=== PATIENT | female | born 1960 | race Caucasian/White ===

== ENCOUNTER 2017-07-14 13:45 | Inpatient (IN) | payer MEDICAID ==
[2017-07-14 14:31] LABS: % BASOPHILS 1.4 % (0.0-2.0); % EOSINOPHILS 0.6 % (0.0-5.0); % LYMPHOCYTES 11.8 % (20.0-50.0); % MONOCYTES 6.8 % (2.0-10.0); % NEUTROPHILS 79.4 % (40.0-80.0); BASOPHILE ABSOLUTE 0.2 Th/cumm (0-0.2); EOSINOPHILE ABSOLUTE 0.1 Th/cmm (0.1-0.4); HEMATOCRIT 38.1 % (41.0-60); LYMPHOCYTE ABSOLUTE 1.7 Th/cmm (1.5-3.0); MEAN CORPUSCULAR HEMOGLOBIN 21.4 pg (27.0-31.0); MEAN CORPUSCULAR HGB CONC 31.4 pg (28.0-36.0); MEAN PLATELET VOLUME 8.7 fl; NEUTROPHILE ABSOLUTE 11.1 Th/cmm (1.8-8.0); PLATELET COUNT 553 Th/cmm (150-400); RED BLOOD COUNT 5.61 Mil/cmm (3.80-5.10); RED CELL DISTRIBUTION WIDTH 26.6 % (11.5-20.0)
[2017-07-14] MEDS ORDERED: Sodium Chloride 0.9% 500 ML IV ONE (14:38)
[2017-07-14 14:40] LABS: ALB/GLOB RATIO 0.8 (1.0-1.8); ALBUMIN 3.1 gm/dL (3.7-5.3); ALKALINE PHOSPHATASE 106 U/L (34-104); ANION GAP 12.2 (7.0-16.0); BILIRUBIN,TOTAL 0.3 mg/dL (0.3-1.0); BUN - UREA NITROGEN 13 mg/dL (7-25); CALCIUM SERUM 10.6 mg/dL (8.6-10.3); CARBON DIOXIDE 24.5 mEq/L (21.0-31.0); CHLORIDE 96 mEq/L (98-107); CREATININE - SERUM 0.4 mg/dL (0.6-1.2); CREATININE KINASE 19 U/L (30-223); GFR AFRICAN-AMERICAN > 60.0 ml/min (>90); GFR NON AFRICAN-AMERICAN > 60.0 ml/min; GLUCOSE 139 mg/dL (70-105); MAGNESIUM 1.7 mg/dL (1.9-2.7); POTASSIUM SERUM 4.7 mEq/L (3.5-5.1); SGOT 18 U/L (13-39); SGPT/ALT 18 U/L (7-52); SODIUM SERUM 128 mEq/L (136-145); TOTAL PROTEIN,SERUM 6.9 gm/dL (6.0-8.3)
--- NOTE | 2017-07-14 14:51 | Diagnostic Imaging Report ---
Portable chest x-ray HISTORY: Shortness of breath, pneumonia, question neoplasm Prior exams are not available for comparison. The heart is enlarged. Heterogeneous density seen in the right lower hemithorax that may be associated with severe infiltrate along with a right pleural effusion. Partial obscuration the right hilar margins. Exact position of the right hemidiaphragm is unclear. IMPRESSION: 1. Heterogeneous density in the right lower hemithorax suggesting extensive infiltrate/consolidation and the presence of a right pleural effusion. Exact location of the right hemidiaphragm is uncertain. A CT scan would provide additional assessment if needed. Correlation with patient history and prior studies would be most beneficial. 2. Cardiomegaly
[2017-07-14 14:58] LABS: WHITE BLOOD COUNT 14.1 Th/cmm (4.8-10.8)
--- NOTE | 2017-07-14 15:01 | Transfer Summary ---
DATE OF TRANSFER: 07/14/2017 ADDENDUM The patient had an x-ray done. X-ray showed normal left wrist, there was no evidence of any fracture. The patient was discharged for home to take some analgesics like Tylenol p.r.n. for pain or Advil 2 tablets couple of times for pain not more than 2 or 3 days and hopefully this should get better, soaking in warm water and otherwise. Incomplete dictation JOB# [id number]
[2017-07-14] MEDS ORDERED: Sodium Chloride 0.9% 1,000 ML IV ONE (15:04)
[2017-07-14 15:06] LABS: MEAN CELL VOLUME 67.9 fl (81-100)
[2017-07-14] MEDS ORDERED: Albuterol Nebulizer 2.5mg/3mL HHN SCH (15:30)
[2017-07-14] MEDS ORDERED: Maalox 30 mL Cup PO PRN (15:31)
[2017-07-14] MEDS ORDERED: Sodium Chloride 0.45% 1,000 ML IV SCH (15:45)
[2017-07-14] MEDS ORDERED: Non-Formulary Item 1 EA (Apixaban [Eliquis] 5 MG) PO SCH (17:00)
[2017-07-14] MEDS: INSULIN ASPART, RECOMBINANT 100 UNITS/ML SUBQ SCH ×2 (17:54→21:55)
[2017-07-14 18:17] LABS: A1C % 10.1 % (4.0-6.0)
[2017-07-14 18:46] LABS: URINE MICROSCOPIC INDICATED? YES; URINE SOURCE CLEAN C
[2017-07-14 18:49] LABS: URINE BILIRUBIN NEGATIVE (NEGATIVE); URINE BLOOD NEGATIVE (NEGATIVE); URINE GLUCOSE (UA) NEGATIVE (NEGATIVE); URINE KETONE NEGATIVE (NEGATIVE); URINE LEUKOCYTE ESTERASE NEGATIVE (NEGATIVE); URINE NITRATE NEGATIVE (NEGATIVE); URINE PROTEIN TRACE mg/dL (NEGATIVE); URINE UROBILINOGEN 0.2 E.U./dL (0.2 - 1.0)
[2017-07-14] MEDS: Albuterol Nebulizer 2.5mg/3mL HHN SCH (18:51)
[2017-07-14 18:55] LABS: URINE BACTERIA NONE SEEN /hpf (NONE SEEN); URINE CLARITY CLEAR (CLEAR); URINE COLOR YELLOW; URINE EPITHELIAL CELLS NONE SEEN /lpf (FEW); URINE RBC NONE SEEN /hpf (0-5); URINE WBC NONE SEEN /hpf (0-5)
--- NOTE | 2017-07-14 19:36 | Transfer Summary ---
DATE OF TRANSFER: 07/14/2017 FOLLOWUP REPORT This was verbally communicated to Dr. Cohen who will be admitting the patient. IMPRESSION HISTORY: Shortness of breath, pneumonia, questionable neoplasm. FINAL DIAGNOSES by Dr. Jesus Blackwell is heterogenous density in the right lower hemithorax suggesting extensive infiltrate/consolidation in the presence of right pleural effusion, exact location of the right hemidiaphragm is uncertain. A CT scan would provide additional assessment if needed. Correlation with the patient's history and prior studies could be most beneficial cardiomegaly. This information was passed on to Dr. Cohen. White count was 14.1, hemoglobin is 12, hematocrit is 38.1, platelet count is 553,000, lymphocytes is 11.8, neutrophils are 79.4. The patient will be admitted and Dr. Cohen will take care of the final diagnosis possible pneumonia in the right lung and the exact location of the right diaphragm is uncertain. A heterogenous density in the right hemithorax plus diabetes plus hypertension, hyper platelet and white count is 14.1, temperature was 99.4. 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 The patient is on multiple medications and the other medications will be given by Dr. Cohen as needed. JOB# [id number]
[2017-07-14 20:03] VITALS: BP 156/88
--- NOTE | 2017-07-14 20:44 | History & Physical ---
ADMIT DATE: 07/14/2017 CHIEF COMPLAINT: Congestion, abnormal chest x-ray. HISTORY OF PRESENT ILLNESS: This is a 57-year-old female with history of hypertension, hypercholesterolemia, obesity, diabetes, seizure, DVT, admitted from nursing facility secondary to congestion with abnormal chest x-ray. The patient noted to have white count during evaluation in the ER. PAST MEDICAL HISTORY: As mentioned in history of present illness. PAST SURGICAL HISTORY: Denies surgeries. ALLERGIES: FAMOTIDINE. MEDICATIONS: Albuterol, Atrovent, Ambien, Risperdal, Zofran, metformin, Lantus, glipizide, Maxzide, Cogentin, atenolol, Eliquis, Tylenol. FAMILY HISTORY: Noncontributory. SOCIAL HISTORY: Avid smoker, nondrinker, no intravenous drug use. REVIEW OF SYSTEMS: GENERAL: Complains not feeling well. HEENT: No blurred vision. NECK: No neck pain. LUNGS: With a questionable history of COPD. The patient is a chronic smoker. HEART: Hypertensive. Denies coronary artery disease. ABDOMEN: No nausea, vomiting or pain. GENITOURINARY: The patient denies increased frequency or dysuria. NEUROLOGIC: No headache or seizure. PSYCHIATRIC: Stable. PHYSICAL EXAMINATION: VITAL SIGNS: Blood pressure 130/74, respirations 16, pulse 96, temperature 97.7. GENERAL: Elderly female, morbidly obese. NECK: Supple. No mass. LUNGS: Equal breath sounds with few rhonchi. HEART: Regular rate and rhythm. Systolic ejection murmur. ABDOMEN: Soft, globular. EXTREMITIES: Positive excoriations. NEUROLOGIC: Limited. LABORATORY DATA: WBC 14, hemoglobin 12, platelets 553. Sodium 120, potassium 4.7, BUN 34, creatinine 0.4, blood sugar 139, magnesium 1.7, albumin 3.1. ASSESSMENT AND PLAN: Congestion, possible pneumonia, leukocytosis, possible sepsis, hyponatremia, hypertension, hypercholesterolemia, obesity, diabetes, history of deep venous thrombosis. Continue the patient on oxygen and bronchodilator treatment. Continue on IV antibiotic. We will review the patient's chest x-ray. We will send for sputum Gram stain and culture and sensitivity. Continue with current care. We will follow consult and recommendations. JOB# [id number]
--- NOTE | 2017-07-14 21:39 | ER Physician Documentation ---
DATE OF SERVICE: 07/14/2017 EMERGENCY ROOM EVALUATION AND TREATMENT She is full code patient. Allergy to FAMOTIDINE, H2 ROBB. This is a 57-year-old female patient who was referred here by Dr. Cohen for elevated platelet that is thrombocytosis. The patient said that she had twice thrombocytosis, but it is not that high and she does not have any symptoms from this. I believe the patient was seen by affiliate marketing manager/oncologist to what apparent medication was given. Usually hydroxyurea is given to decrease the platelet numbers and count if no apparent etiology is detected. The patient's main complaint is that she came with elevated platelet and she said that she has some lump in the left breast and she sees a female breast M.D. who is specializing in the breast and she says it is not found to be cancer. HISTORY OF PRESENT ILLNESS: The patient 6 months ago had pneumonia. She has diabetes mellitus. She used to smoke, now she smokes a little bit. She used to drink a little bit in the past. She does not like it, so she does not drink. She does not abuse any drugs. Otherwise, history of present illness is essentially benign and negative except for her diagnosis of diabetes mellitus, insulin-dependent, along with taking metformin. She takes metformin 500 mg twice a day and Lantus 20 units once a day. The patient has hypertension, high cholesterol. REVIEW OF SYSTEMS: EYES: No history of double vision, blurring of the vision, nystagmus. CONSTITUTIONAL: No history of fevers, chills or rigors. Bones and joints essentially, she said she had a fracture above the left knee, but patient was walking after the fracture that means she did not have a fracture. The patient did not have a cast. The patient did not have surgery. The patient does not have any special boots or things of that nature, that disproves her diagnosis of having had a broken bone and she said they were broken into multiple pieces so this also is proven wrong because with that kind of condition the patient cannot just walk. FAMILY HISTORY: Benign and negative. MEDICAL HISTORY: Otherwise, the patient had a history of appendicectomy, at the age of 23 and one other minor surgery, that I am forgetting at the present moment, but will find out and write it down. Medical history is diabetes, hypertension, hypercholesterolemia and patient had a high platelet count, but today's platelet count 2 days ago was 658,000, so it is not that high, usually in sickle cell, the platelet count can go as high as 1000 or more than 1000 and all you need to do is give them hydroxyurea and they get better. I believe she might also need hydroxyurea and she might be dehydrated giving rise to clumping, so she might need also some IV fluids on a regular basis to prevent any clumping, any thrombocytosis developing, any infection that she has should be corrected to prevent a platelet count from going up, so there a few other causes that could be given to the patient to treat it. REVIEW OF SYSTEMS: Continued overall, peripheral vascular disease is negative, all the pulses are normal. Bones and joints are essentially normal. The patient is moving all the extremities. She can walk on her own without any cane or any chair, etc. Without any support. GI dasilva, patient has no diarrhea, no constipation, no vomiting. LUNGS: No history of pneumonia, TB, pulmonary embolism, COPD, emphysema, bronchitis. Cardiac dasilva, patient has no history of any chest pain, myocardial infarction, rheumatic fever, valvular heart disease, pericardial disease. EKG was just done by the master sonar technician showing suggestion of left atrial enlargement, one PVC was recorded. Otherwise, the patient does not have any evidence of ischemia or any other significant medical condition that could be seen. On genitourinary dasilva, patient has no burning, frequency, dysuria. There is no history of any kidney stones. A 12-point review of system is essentially benign and negative. She does not have any weakness, etc. She has some psychiatric problems for which she takes Haldol 2 mg b.i.d. She takes Ativan 2 mg p.o. b.i.d. and she takes Elavil 75 mg p.o. twice a day. PHYSICAL EXAMINATION: GENERAL: The patient appears to be awake, alert, oriented, not in any acute cardiorespiratory distress. Conjunctivae pink. Sclerae white. HEENT: Normal. Jugular venous pressure is normal. VITAL SIGNS: The triage nurse took the vital signs showing temperature to be 98.7, pulse is 105, respirations 21, blood pressure 89/63, somewhat lower, that also tells you that the lowering of blood pressures range, the patient may be dehydrated and if the diabetes is not corrected and the blood sugar is high he may void more urine and platelet count may go up because there is clustering of the platelet occurring with dehydration and more urine output. The patient's height is 4 feet 9 inches and weighing 172 pounds. Flu vaccination, tetanus and pneumococcus vaccination, all are standard taken without any problem. MEDICAL HISTORY: Otherwise, the patient has a lump in the left breast. She does not allow me to see it saying that she has a doctor for that, so left it alone for her physician to take care of it. There is nothing acute she says in that breast. The patient's surgery is otherwise no definite surgery other than appendicectomy, . SOCIAL HISTORY: She has one child. She is not . FAMILY HISTORY: Benign and negative. PHYSICAL EXAMINATION: GENERAL: The patient appears to be awake, alert, oriented, not in any acute cardiorespiratory distress. Conjunctivae are pink, sclerae are white. HEENT: Normal. Jugular venous pressure, is essentially within normal limits. Carotids are normal. Normal uplift, no bruit heard over the carotid artery. No cyanosis, no petechia. No ecchymosis. Peripheral pulses are normal. Trace edema if any is present in the lower extremities. Central nervous system is grossly within normal limits. The patient recognizes that she is here. She knows where she is staying. She has been at one of the local [facility] where she has been taken care by Dr. Cohen. The patient's other medications as per in the computer by the triage nurse team. One thing to be noted is that the patient is taking Eliquis 5 mg p.o. b.i.d. for deep vein thrombophlebitis and whether this can cause any hyper platelet count is not known, but we can always check it out to see if there is anything The patient is also taking Cogentin 1 mg at bedtime. The patient is taking 20 units of insulin at nighttime, to be hold, to be not given if the blood sugar is less than 100 mg in the morning. The patient is taking 850 mg metformin p.o. 3 times a day with meals. Glipizide 5 mg p.o. once a day and hemoglobin A1c has been ordered to be done every 3 months. A1c level has been ordered, I am not sure what is the count if I can find it I will let you know. The vital signs taken by the nurse at the retirement is temperature of 98, pulse of 80, respirations 20, blood pressure 142/80, oxygen saturation 97%. Pain level is no pain. The patient has zero pain over 10. The patient's chest is clear. Fairly good air entry in both lungs, on the right lung base there is slightly decreased air entry, on the left lung air entry is good. Emphysematous chest wall AP diameter of the chest is increased. No rales or rhonchi is noted. Chest x-ray showed a right hemidiaphragm is elevated and there seems to be some haziness and there may be some pneumonitis or infiltrate at the right lower lobe area. The platelet count was found to be 658,000. Normal count is 150-400; 658 is not something very high but one should be significantly worried, but if needed should be treated. Urine culture test was done and it was pending. Urine was found to be negative. Calcium oxalate crystals were present. Urine examination otherwise was cloudy, but not having any evidence of infection. Hemoglobin A1c was very high at 9.4, which is high that means the patient is telling me that her sugar value is always below 127, but here I the sugar value is 223 and hemoglobin A1c is 9.4. White count is 12.73, so chances of patient having pneumonia or infection, etc. is pretty much high on the list. Hemoglobin A1c level is again 10.1, so although hemoglobin A1c level is pretty high and if the patient is staying in the retirement, maybe Eliquis could be changed to Lovenox; perhaps Eliquis might be a cause of elevated platelet count. Cholesterol LDL calculated was 120. The patient may need some medication to lower the cholesterol LDL level count. BUN is 14, creatinine was 0.37. This was done on 07/03/2017, so it is not bad looking BUN and creatinine ratio, not much of dehydration is seen. Potassium is 5.1 and electrolytes are within normal limits. Albumin is low at 2.9, alkaline phosphatase 158. The patient's examination of the chest as I mentioned few crackles at both lung bases and decreased air entry at the right base. HEART: Reveals normal heart sounds. Soft fourth heart sounds. Third heart sound is absent. Second heart sound is physiologically split. ABDOMEN: Soft, obese, otherwise benign, negative and surgical scar of is noted. Here I see that the patient was advised to be seen by a affiliate marketing manager/oncologist, what he did so far, it is hard to understand or read. The patient had pulmonary consultation. Hematology/Oncology consultation was requested, but what was the outcome, what treatment was given, at least I cannot locate it; perhaps Dr. Cohen might be aware of what is going on with the patient. We will rule out if there is any evidence of infection playing a role or whether any Eliquis is doing this, may be one can cut down the Eliquis from 10 mg to less than 10, maybe 5 or cut other doses to change it to Lovenox 30 or 40 mg once a day. ABDOMEN: Soft, benign, negative. Liver, spleen not enlarged. No free fluid in the abdominal cavity. CENTRAL NERVOUS SYSTEM: Within normal limits, moving all the extremities. No evidence of any tumor, etc. CLINICAL IMPRESSION: The patient came here for elevated platelets, etiology of the elevated platelets could be some medication, most likely it could be dehydration, it could be secondary to some medication. It could be some medication given to her and that might cause her lactic acid level was found to be 1.83, upper limit of normal should be 1.99, but still this is high. Her sodium level is also 1.128, that means she may be dry with electrolytes and she might need some fluids to be given. Her potassium of 4.7, chloride 96, CO2 of 24.5, glucose to be 139, BUN 13, creatinine 0.4, total albumin is 3.1, magnesium is 1.7, so she might need some IV magnesium chloride also. So we can give her some fluids. I do not have any CBC available or platelet count available at the present moment to give it to you but once available I will let you know. Other diagnosis that the patient has is the patient may be having some tremors, drooling or rigidity. The patient has hypertension. The patient has diabetes mellitus. The patient has a psychiatric problem. The patient had a history of DVT for which she takes Eliquis. She is on amitriptyline 50 mg tablet p.o. b.i.d. for depression and verbalizing sadness. She has also hyperlipidemia, LDL level is high and I believe for LDL level high gemfibrozil is not the drug to be given. I believe the drug to be given would be atorvastatin and/or Crestor to be given; not gemfibrozil. Gemfibrozil to be given if the patient's triglycerides levels are high. Risperidone 2 mg at nighttime for schizophrenia. Breathing treatment with albuterol has been given. Lasix has been given, I believe the Lasix should not be given at the present moment considering her diabetes mellitus, which is not controlled, once it is controlled, then maybe one can add on to the Lasix list. The platelet count done a few days ago was 658,000 to be kept in mind. Thank you again. There is no definite evidence of septic shock in this patient and any other treatment orders that will be necessary, I will order it. Thank you again, Dr. Cohen, for your kindness in this referral to sending her to the Emergency Room for us to check it out. JOB# [id number]
[2017-07-14] MEDS: Insulin Detemir 100 units/mL 10mL Vial SUBQ SCH (21:54)
[2017-07-14] MEDS: Benztropine 1 MG TAB PO SCH (21:54)
--- NOTE | 2017-07-15 01:17 | Consultation ---
DATE OF CONSULTATION: 07/14/2017 PHYSICIAN REQUESTING CONSULTATION: Dr. Cohen. REASON FOR CONSULTATION: History of psychosis. HISTORY OF PRESENT ILLNESS: This patient is a 57-year-old woman, resident of a [facility]. Information obtained by directly interviewing the patient as well as reviewing the admission papers and they are reliable. JUSTIFICATION OF HOSPITALIZATION: The patient is admitted over here for possible sepsis. The patient has shortness of breath and possible pneumonia. The patient is admitted over here for possible pneumonia and a psychiatric consultation is called to address the issue of the psychosis. The patient is interviewed. Staff was spoken to. The patient is reporting that she was at [facility] and has been diagnosed with psychosis and was on haloperidol 2 mg twice a day. The patient is also receiving the Ativan 0.5 mg on a p.r.n. basis and Elavil 50 mg at bedtime and the patient has been stating that she has been taking this medication for a long time and is also seeing a psychiatrist on an outpatient basis. PAST PSYCHIATRIC HISTORY: The patient is reported to have been hospitalized at [facility]. SOCIAL HISTORY: The patient is stating that she is a resident of [facility]. SUBSTANCE ABUSE HISTORY: None. PHYSICAL OR SEXUAL ABUSE HISTORY: None. LEGAL PROBLEMS: None at this time. MENTAL STATUS EXAMINATION: The patient is a 57-year-old woman looking her stated age. Moderately obese, superficially cooperative. Eye contact is poor. Mood is irritable. Affect is constricted. Insight and judgment at this time are noted to be impaired. Impulse control seems to be poor. Coping skills are also noted to be poor. The patient has been having paranoid delusions, but denies any commanding hallucinations. The patient has been having difficult time to cope with the stress. The patient, however, is not noted to be suicidal or homicidal. The patient has been cooperative at this time. The patient is willing to comply with the treatment. DIAGNOSES AT THE TIME OF ADMISSION: AXIS I: Schizophrenia, chronic paranoid type. AXIS II: None. IMMEDIATE TREATMENT PLAN: The patient is going to be restarted on her Haldol and follow up with the supportive therapy. JOB# [id number]
[2017-07-15 06:07] LABS: % BASOPHILS 4.5 % (0.0-2.0); % EOSINOPHILS 0.6 % (0.0-5.0); % LYMPHOCYTES 14.6 % (20.0-50.0); % MONOCYTES 7.9 % (2.0-10.0); % NEUTROPHILS 72.4 % (40.0-80.0); BASOPHILE ABSOLUTE 0.7 Th/cumm (0-0.2); EOSINOPHILE ABSOLUTE 0.1 Th/cmm (0.1-0.4); HEMATOCRIT 37.5 % (41.0-60); HEMOGLOBIN 11.7 gm/dL (12-16); LYMPHOCYTE ABSOLUTE 2.2 Th/cmm (1.5-3.0); MEAN CORPUSCULAR HEMOGLOBIN 21.1 pg (27.0-31.0); MEAN CORPUSCULAR HGB CONC 31.3 pg (28.0-36.0); MEAN PLATELET VOLUME 8.6 fl; MONOCYTE ABSOLUTE 1.2 Th/cmm (0.3-1.0); NEUTROPHILE ABSOLUTE 10.6 Th/cmm (1.8-8.0); PLATELET COUNT 593 Th/cmm (150-400); RED BLOOD COUNT 5.56 Mil/cmm (3.80-5.10)
[2017-07-15 06:10] LABS: MEAN CELL VOLUME 67.5 fl (81-100); WHITE BLOOD COUNT 14.8 Th/cmm (4.8-10.8)
[2017-07-15 06:23] LABS: ANION GAP 9.1 (7.0-16.0); BUN - UREA NITROGEN 9 mg/dL (7-25); CALCIUM SERUM 10.3 mg/dL (8.6-10.3); CARBON DIOXIDE 25.3 mEq/L (21.0-31.0); CHLORIDE 98 mEq/L (98-107); CREATININE - SERUM 0.3 mg/dL (0.6-1.2); GFR AFRICAN-AMERICAN > 60.0 ml/min (>90); GFR NON AFRICAN-AMERICAN > 60.0 ml/min; GLUCOSE 189 mg/dL (70-105); POTASSIUM SERUM 4.4 mEq/L (3.5-5.1); SODIUM SERUM 128 mEq/L (136-145)
[2017-07-15] MEDS: INSULIN ASPART, RECOMBINANT 100 UNITS/ML SUBQ SCH ×4 (06:32→21:09)
[2017-07-15] MEDS: Albuterol Nebulizer 2.5mg/3mL HHN SCH ×4 (08:18→20:30)
[2017-07-15] MEDS ORDERED: Dabigatran Mesylate 75 mg Cap PO SCH (09:00)
--- NOTE | 2017-07-15 11:51 | Internal Medicine Prog Note ---
Internal Medicine Subjective - Subjective Patient seen and examined:: with staff, chart reviewed Patient is:: awake, verbal, interactive, in bed, agitated Patient Complaints of:: congestion Per staff patient has:: no adverse event, no episodes of fall, noncompliant, tolerating meds Internal Medicine Objective - Results Result Diagrams: 07/15/17 05:45 07/15/17 05:45 Recent Labs: Laboratory Last Values WBC 14.8 Th/cmm (4.8-10.8) H 07/15/17 05:45 RBC 5.56 Mil/cmm (3.80-5.10) H 07/15/17 05:45 Hgb 11.7 gm/dL (12-16) L 07/15/17 05:45 Hct 37.5 % (41.0-60) L 07/15/17 05:45 MCV 67.5 fl (81-100) L 07/15/17 05:45 MCH 21.1 pg (27.0-31.0) L 07/15/17 05:45 MCHC Differential 31.3 pg (28.0-36.0) 07/15/17 05:45 RDW 26.0 % (11.5-20.0) H 07/15/17 05:45 Plt Count 593 Th/cmm (150-400) H 07/15/17 05:45 MPV 8.6 fl 07/15/17 05:45 Neutrophils % 72.4 % (40.0-80.0) 07/15/17 05:45 Lymphocytes % 14.6 % (20.0-50.0) L 07/15/17 05:45 Monocytes % 7.9 % (2.0-10.0) 07/15/17 05:45 Eosinophils % 0.6 % (0.0-5.0) 07/15/17 05:45 Basophils % 4.5 % (0.0-2.0) H 07/15/17 05:45 Sodium 128 mEq/L (136-145) L 07/15/17 05:45 Potassium 4.4 mEq/L (3.5-5.1) 07/15/17 05:45 Chloride 98 mEq/L (98-107) 07/15/17 05:45 Carbon Dioxide 25.3 mEq/L (21.0-31.0) 07/15/17 05:45 Anion Gap 9.1 (7.0-16.0) 07/15/17 05:45 BUN 9 mg/dL (7-25) 07/15/17 05:45 Creatinine 0.3 mg/dL (0.6-1.2) L 07/15/17 05:45 Est GFR ( Amer) > 60.0 ml/min (>90) 07/15/17 05:45 Est GFR (Non-Af Amer) > 60.0 ml/min 07/15/17 05:45 BUN/Creatinine Ratio 30.0 07/15/17 05:45 Glucose 189 mg/dL (70-105) H 07/15/17 05:45 POC Glucose 141 MG/DL (70 - 105) H 07/15/17 11:25 Hemoglobin A1c % 10.1 % (4.0-6.0) H 07/14/17 14:17 Whole Bld Lactic Acid 1.83 mmol/L (0.60-1.99) 07/14/17 14:17 Calcium 10.3 mg/dL (8.6-10.3) 07/15/17 05:45 Magnesium 1.7 mg/dL (1.9-2.7) L 07/14/17 14:17 Total Bilirubin 0.3 mg/dL (0.3-1.0) 07/14/17 14:17 AST 18 U/L (13-39) 07/14/17 14:17 ALT 18 U/L (7-52) 07/14/17 14:17 Alkaline Phosphatase 106 U/L (34-104) H 07/14/17 14:17 Ammonia 42 umol/L (16-53) 07/15/17 05:45 Creatine Kinase 19 U/L (30-223) L 07/14/17 14:17 B-Natriuretic Peptide 556.0 pg/mL (5.0-100.0) H 07/15/17 05:45 Total Protein 6.9 gm/dL (6.0-8.3) 07/14/17 14:17 Albumin 3.1 gm/dL (3.7-5.3) L 07/14/17 14:17 Globulin 3.8 gm/dL 07/14/17 14:17 Albumin/Globulin Ratio 0.8 (1.0-1.8) L 07/14/17 14:17 Urine Source CLEAN C 07/14/17 17:35 Urine Color YELLOW 07/14/17 17:35 Urine Clarity CLEAR (CLEAR) 07/14/17 17:35 Urine pH 6.0 (4.6 - 8.0) 07/14/17 17:35 Ur Specific [place] 1.015 (1.005-1.030) 07/14/17 17:35 Urine Protein TRACE mg/dL (NEGATIVE) 07/14/17 17:35 Urine Glucose (UA) NEGATIVE mg/dL (NEGATIVE) 07/14/17 17:35 Urine Ketones NEGATIVE mg/dL (NEGATIVE) 07/14/17 17:35 Urine Blood NEGATIVE (NEGATIVE) 07/14/17 17:35 Urine Nitrate NEGATIVE (NEGATIVE) 07/14/17 17:35 Urine Bilirubin NEGATIVE (NEGATIVE) 07/14/17 17:35 Urine Urobilinogen 0.2 E.U./dL (0.2 - 1.0) 07/14/17 17:35 Ur Leukocyte Esterase NEGATIVE (NEGATIVE) 07/14/17 17:35 Urine RBC NONE SEEN /hpf (0-5) 07/14/17 17:35 Urine WBC NONE SEEN /hpf (0-5) 07/14/17 17:35 Ur Epithelial Cells NONE SEEN /lpf (FEW) 07/14/17 17:35 Urine Bacteria NONE SEEN /hpf (NONE SEEN) 07/14/17 17:35 - Physical Exam Vitals and I&O: Vital Signs Temp 97.7 F 07/15/17 08:00 Pulse 112 07/15/17 08:20 Resp 20 07/15/17 08:20 BP 168/86 07/15/17 08:19 Pulse Ox 92 07/15/17 08:20 Intake & Output 07/14/17 07/15/17 07/15/17 18:59 06:59 18:59 Intake Total 50 600 Output Total 1 Balance 50 599 Weight (lbs) 76.204 kg Intake: Intake, IV Amount 50 Cefepime 1 gm In Dextrose 50 5% 50 ml @ 100 mls/hr IV Q12H [facility] Rx#:[id number] Oral 500 Other 100 Output: Stool 1 Other: # Voids 3 # Bowel Movements 1 Weight Source Bedscale Active Medications: Current Medications Acetaminophen (Tylenol) 650 mg PO Q4H PRN PRN Reason: Pain Or Fever above 101 Stop: 09/12/17 15:30 Al Hydrox/Mg Hydrox/Simethicone (Maalox) 30 ml PO Q6H PRN PRN Reason: Dyspepsia Stop: 09/12/17 15:30 Albuterol Sulfate (Albuterol 2.5mg/3ml Neb Ud) 2.5 mg HHN QIDRT [facility] Stop: 09/12/17 18:59 Last Admin: 07/15/17 08:18 Dose: Not Given Alprazolam (Xanax) 0.5 mg PO Q8HR PRN; Protocol PRN Reason: Agitation Stop: 09/13/17 11:48 Amitriptyline HCl (Elavil) 50 mg PO HS [facility] Stop: 09/12/17 21:07 Last Admin: 07/14/17 22:01 Dose: 50 mg Atenolol (Tenormin) 50 mg PO DAILY [facility] Stop: 09/13/17 08:59 Last Admin: 07/15/17 08:19 Dose: 50 mg Benztropine Mesylate (Cogentin) 1 mg PO HS [facility] Stop: 09/12/17 20:59 Last Admin: 07/14/17 21:54 Dose: 1 mg Docusate Sodium (Colace) 250 mg PO DAILY [facility] Stop: 09/13/17 08:59 Last Admin: 07/15/17 08:22 Dose: Not Given Gemfibrozil (Lopid) 600 mg PO BID [facility] Stop: 09/12/17 16:59 Last Admin: 07/15/17 08:19 Dose: 600 mg Glipizide (Glucotrol) 5 mg PO QDAC [facility] Stop: 09/13/17 07:29 Last Admin: 07/15/17 06:31 Dose: 5 mg Haloperidol (Haldol) 2 mg PO Q6HR [facility] PRN Reason: Protocol Stop: 09/12/17 21:14 Last Admin: 07/15/17 05:45 Dose: 2 mg Cefepime HCl 1 gm/ Dextrose 50 mls @ 100 mls/hr IV Q12H [facility] Stop: 09/12/17 17:59 Last Admin: 07/15/17 05:33 Dose: 100 mls/hr Sodium Chloride (Nacl 0.9%) 1,000 mls @ 50 mls/hr IV .Q20H [facility] Stop: 09/13/17 11:59 Insulin Aspart (Novolog) 0 units SUBQ ACHS [facility] PRN Reason: Protocol Stop: 09/12/17 16:29 Last Admin: 07/15/17 11:43 Dose: Not Given Insulin Detemir (Levemir Insulin) 20 units SUBQ HS [facility] Stop: 09/12/17 20:59 Last Admin: 07/14/17 21:54 Dose: Not Given Lorazepam (Ativan) 0.5 mg PO BID PRN; Protocol PRN Reason: AGITATION Stop: 09/12/17 21:07 Metformin HCl (Glucophage) 850 mg PO TID [facility] Stop: 09/12/17 20:59 Last Admin: 07/15/17 08:19 Dose: 850 mg Ondansetron HCl (Zofran) 4 mg IV Q8H PRN PRN Reason: Nausea / Vomiting Stop: 09/12/17 15:30 Risperidone (Risperdal) 2 mg PO BID [facility] Stop: 09/12/17 16:59 Rivaroxaban (Xarelto) 10 mg PO DAILY [facility] Stop: 09/13/17 08:59 Last Admin: 07/15/17 08:19 Dose: 10 mg Zolpidem Tartrate (Ambien) 10 mg PO HS PRN PRN Reason: Insomnia Stop: 09/12/17 15:30 General: demented HEENT: NC/AT, PERRLA, poor dentition Neck: Supple, No JVD, deformity Lungs: CTAB Cardiovascular: RRR, Normal S1, Normal S2 Abdomen: soft, globular, non-distended, positive bowel sound Extremities: excoriation, ecchymosis Neurological: no change, bedbound Internal Medicine Assmt/Plan - Assessment Assessment: ASSESSMENT AND PLAN: Congestion, possible pneumonia, leukocytosis, possible sepsis, hyponatremia, hypertension, hypercholesterolemia, obesity, diabetes, history of deep venous thrombosis. - Plan Plan: Continue the patient on oxygen and bronchodilator treatment. Continue on IV antibiotic. We will review the patient's chest x-ray. We will send for sputum Gram stain and culture and sensitivity. Continue with current care. We will follow consult and recommendations.
[2017-07-15] MEDS: Sodium Chloride 0.9% 1,000 ML IV SCH (12:49)
[2017-07-15] MEDS: Benztropine 1 MG TAB PO SCH (21:08)
[2017-07-15] MEDS: Insulin Detemir 100 units/mL 10mL Vial SUBQ SCH (21:08)
[2017-07-16] MEDS: Albuterol Nebulizer 2.5mg/3mL HHN SCH ×4 (07:40→19:54)
[2017-07-16] MEDS: INSULIN ASPART, RECOMBINANT 100 UNITS/ML SUBQ SCH ×4 (08:24→20:56)
--- NOTE | 2017-07-16 11:53 | Internal Medicine Prog Note ---
Internal Medicine Subjective - Subjective Patient seen and examined:: with staff, chart reviewed Patient is:: awake, verbal, interactive, in bed, agitated Patient Complaints of:: congestion Per staff patient has:: no adverse event, no episodes of fall, noncompliant, tolerating meds Internal Medicine Objective - Results Result Diagrams: 07/15/17 05:45 07/15/17 05:45 Recent Labs: Laboratory Last Values WBC 14.8 Th/cmm (4.8-10.8) H 07/15/17 05:45 RBC 5.56 Mil/cmm (3.80-5.10) H 07/15/17 05:45 Hgb 11.7 gm/dL (12-16) L 07/15/17 05:45 Hct 37.5 % (41.0-60) L 07/15/17 05:45 MCV 67.5 fl (81-100) L 07/15/17 05:45 MCH 21.1 pg (27.0-31.0) L 07/15/17 05:45 MCHC Differential 31.3 pg (28.0-36.0) 07/15/17 05:45 RDW 26.0 % (11.5-20.0) H 07/15/17 05:45 Plt Count 593 Th/cmm (150-400) H 07/15/17 05:45 MPV 8.6 fl 07/15/17 05:45 Neutrophils % 72.4 % (40.0-80.0) 07/15/17 05:45 Lymphocytes % 14.6 % (20.0-50.0) L 07/15/17 05:45 Monocytes % 7.9 % (2.0-10.0) 07/15/17 05:45 Eosinophils % 0.6 % (0.0-5.0) 07/15/17 05:45 Basophils % 4.5 % (0.0-2.0) H 07/15/17 05:45 Sodium 128 mEq/L (136-145) L 07/15/17 05:45 Potassium 4.4 mEq/L (3.5-5.1) 07/15/17 05:45 Chloride 98 mEq/L (98-107) 07/15/17 05:45 Carbon Dioxide 25.3 mEq/L (21.0-31.0) 07/15/17 05:45 Anion Gap 9.1 (7.0-16.0) 07/15/17 05:45 BUN 9 mg/dL (7-25) 07/15/17 05:45 Creatinine 0.3 mg/dL (0.6-1.2) L 07/15/17 05:45 Est GFR ( Amer) > 60.0 ml/min (>90) 07/15/17 05:45 Est GFR (Non-Af Amer) > 60.0 ml/min 07/15/17 05:45 BUN/Creatinine Ratio 30.0 07/15/17 05:45 Glucose 189 mg/dL (70-105) H 07/15/17 05:45 POC Glucose 203 MG/DL (70 - 105) H 07/16/17 06:26 Hemoglobin A1c % 10.1 % (4.0-6.0) H 07/14/17 14:17 Whole Bld Lactic Acid 1.83 mmol/L (0.60-1.99) 07/14/17 14:17 Calcium 10.3 mg/dL (8.6-10.3) 07/15/17 05:45 Magnesium 1.7 mg/dL (1.9-2.7) L 07/14/17 14:17 Total Bilirubin 0.3 mg/dL (0.3-1.0) 07/14/17 14:17 AST 18 U/L (13-39) 07/14/17 14:17 ALT 18 U/L (7-52) 07/14/17 14:17 Alkaline Phosphatase 106 U/L (34-104) H 07/14/17 14:17 Ammonia 42 umol/L (16-53) 07/15/17 05:45 Creatine Kinase 19 U/L (30-223) L 07/14/17 14:17 B-Natriuretic Peptide 556.0 pg/mL (5.0-100.0) H 07/15/17 05:45 Total Protein 6.9 gm/dL (6.0-8.3) 07/14/17 14:17 Albumin 3.1 gm/dL (3.7-5.3) L 07/14/17 14:17 Globulin 3.8 gm/dL 07/14/17 14:17 Albumin/Globulin Ratio 0.8 (1.0-1.8) L 07/14/17 14:17 Urine Source CLEAN C 07/14/17 17:35 Urine Color YELLOW 07/14/17 17:35 Urine Clarity CLEAR (CLEAR) 07/14/17 17:35 Urine pH 6.0 (4.6 - 8.0) 07/14/17 17:35 Ur Specific [place] 1.015 (1.005-1.030) 07/14/17 17:35 Urine Protein TRACE mg/dL (NEGATIVE) 07/14/17 17:35 Urine Glucose (UA) NEGATIVE mg/dL (NEGATIVE) 07/14/17 17:35 Urine Ketones NEGATIVE mg/dL (NEGATIVE) 07/14/17 17:35 Urine Blood NEGATIVE (NEGATIVE) 07/14/17 17:35 Urine Nitrate NEGATIVE (NEGATIVE) 07/14/17 17:35 Urine Bilirubin NEGATIVE (NEGATIVE) 07/14/17 17:35 Urine Urobilinogen 0.2 E.U./dL (0.2 - 1.0) 07/14/17 17:35 Ur Leukocyte Esterase NEGATIVE (NEGATIVE) 07/14/17 17:35 Urine RBC NONE SEEN /hpf (0-5) 07/14/17 17:35 Urine WBC NONE SEEN /hpf (0-5) 07/14/17 17:35 Ur Epithelial Cells NONE SEEN /lpf (FEW) 07/14/17 17:35 Urine Bacteria NONE SEEN /hpf (NONE SEEN) 07/14/17 17:35 - Physical Exam Vitals and I&O: Vital Signs Temp 97.4 F 07/16/17 06:00 Pulse 110 07/16/17 11:34 Resp 22 07/16/17 11:34 BP 152/94 07/16/17 08:25 Pulse Ox 92 07/16/17 11:34 Intake & Output 07/15/17 07/16/17 07/16/17 18:59 06:59 18:59 Intake Total 1000 550 Balance 1000 550 Weight (lbs) 76.204 kg 76.204 kg Intake: Intake, IV Amount 50 Cefepime 1 gm In Dextrose 50 5% 50 ml @ 100 mls/hr IV Q12H [facility] Rx#:[id number] Oral 1000 500 Other: # Voids 6 4 # Bowel Movements 1 1 Weight Source Bedscale Bedscale Active Medications: Current Medications Acetaminophen (Tylenol) 650 mg PO Q4H PRN PRN Reason: Pain Or Fever above 101 Stop: 09/12/17 15:30 Last Admin: 07/15/17 21:07 Dose: 650 mg Al Hydrox/Mg Hydrox/Simethicone (Maalox) 30 ml PO Q6H PRN PRN Reason: Dyspepsia Stop: 09/12/17 15:30 Albuterol Sulfate (Albuterol 2.5mg/3ml Neb Ud) 2.5 mg HHN QIDRT [facility] Stop: 09/12/17 18:59 Last Admin: 07/16/17 11:33 Dose: Not Given Alprazolam (Xanax) 0.5 mg PO Q8HR PRN; Protocol PRN Reason: Agitation Stop: 09/13/17 11:48 Amitriptyline HCl (Elavil) 50 mg PO HS [facility] Stop: 09/12/17 21:07 Last Admin: 07/15/17 21:08 Dose: 50 mg Atenolol (Tenormin) 50 mg PO DAILY [facility] Stop: 09/13/17 08:59 Last Admin: 07/16/17 08:25 Dose: 50 mg Benztropine Mesylate (Cogentin) 1 mg PO HS [facility] Stop: 09/12/17 20:59 Last Admin: 07/15/17 21:08 Dose: 1 mg Docusate Sodium (Colace) 250 mg PO DAILY [facility] Stop: 09/13/17 08:59 Last Admin: 07/16/17 08:28 Dose: Not Given Gemfibrozil (Lopid) 600 mg PO BID [facility] Stop: 09/12/17 16:59 Last Admin: 07/16/17 08:27 Dose: 600 mg Glipizide (Glucotrol) 5 mg PO QDAC [facility] Stop: 09/13/17 07:29 Last Admin: 07/16/17 06:30 Dose: 5 mg Haloperidol (Haldol) 2 mg PO Q6HR [facility] PRN Reason: Protocol Stop: 09/12/17 21:14 Last Admin: 07/16/17 06:30 Dose: 2 mg Cefepime HCl 1 gm/ Dextrose 50 mls @ 100 mls/hr IV Q12H [facility] Stop: 09/12/17 17:59 Last Admin: 07/16/17 06:30 Dose: 100 mls/hr Sodium Chloride (Nacl 0.9%) 1,000 mls @ 50 mls/hr IV .Q20H [facility] Stop: 09/13/17 11:59 Last Admin: 07/15/17 12:49 Dose: 50 mls/hr Insulin Aspart (Novolog) 0 units SUBQ ACHS [facility] PRN Reason: Protocol Stop: 09/12/17 16:29 Last Admin: 07/16/17 08:24 Dose: Not Given Insulin Detemir (Levemir Insulin) 20 units SUBQ HS [facility] Stop: 09/12/17 20:59 Last Admin: 07/15/17 21:08 Dose: Not Given Lorazepam (Ativan) 0.5 mg PO BID PRN; Protocol PRN Reason: AGITATION Stop: 09/12/17 21:07 Metformin HCl (Glucophage) 850 mg PO TID [facility] Stop: 09/12/17 20:59 Last Admin: 07/16/17 08:27 Dose: 850 mg Ondansetron HCl (Zofran) 4 mg IV Q8H PRN PRN Reason: Nausea / Vomiting Stop: 09/12/17 15:30 Risperidone (Risperdal) 2 mg PO BID [facility] Stop: 09/12/17 16:59 Rivaroxaban (Xarelto) 10 mg PO DAILY [facility] Stop: 09/13/17 08:59 Last Admin: 07/16/17 08:27 Dose: 10 mg Zolpidem Tartrate (Ambien) 10 mg PO HS PRN PRN Reason: Insomnia Stop: 09/12/17 15:30 General: demented HEENT: NC/AT, PERRLA, poor dentition Neck: Supple, No JVD, deformity Lungs: CTAB Cardiovascular: RRR, Normal S1, Normal S2 Abdomen: soft, globular, non-distended, positive bowel sound Extremities: excoriation, ecchymosis Neurological: no change, bedbound Internal Medicine Assmt/Plan - Assessment Assessment: ASSESSMENT AND PLAN: Congestion, possible pneumonia, leukocytosis, possible sepsis, hyponatremia, hypertension, hypercholesterolemia, obesity, diabetes, history of deep venous thrombosis. - Plan Plan: Continue the patient on oxygen and bronchodilator treatment. Continue on IV antibiotic. We will review the patient's chest x-ray. We will send for sputum Gram stain and culture and sensitivity. Continue with current care. We will follow consult and recommendations.
[2017-07-16] MEDS: Sodium Chloride 0.9% 1,000 ML IV SCH (13:12)
[2017-07-16] MEDS: Benztropine 1 MG TAB PO SCH (20:31)
[2017-07-16] MEDS: Insulin Detemir 100 units/mL 10mL Vial SUBQ SCH (21:18)
[2017-07-17 06:01] LABS: HEMATOCRIT 38.6 % (41.0-60); HEMOGLOBIN 12.2 gm/dL (12-16); MEAN CORPUSCULAR HEMOGLOBIN 21.2 pg (27.0-31.0); MEAN CORPUSCULAR HGB CONC 31.5 pg (28.0-36.0); MEAN PLATELET VOLUME 8.1 fl; PLATELET COUNT 596 Th/cmm (150-400); RED BLOOD COUNT 5.74 Mil/cmm (3.80-5.10); WHITE BLOOD COUNT 8.4 Th/cmm (4.8-10.8)
[2017-07-17 06:09] LABS: MANUAL DIFF REQUIRED? YES
[2017-07-17 06:41] LABS: ANION GAP 11.2 (7.0-16.0); BUN - UREA NITROGEN 8 mg/dL (7-25); CALCIUM SERUM 10.2 mg/dL (8.6-10.3); CARBON DIOXIDE 25.9 mEq/L (21.0-31.0); CHLORIDE 99 mEq/L (98-107); CREATININE - SERUM 0.4 mg/dL (0.6-1.2); GFR AFRICAN-AMERICAN > 60.0 ml/min (>90); GFR NON AFRICAN-AMERICAN > 60.0 ml/min; GLUCOSE 182 mg/dL (70-105); POTASSIUM SERUM 4.1 mEq/L (3.5-5.1); SODIUM SERUM 132 mEq/L (136-145)
[2017-07-17 07:10] LABS: BAND NEUTROPHILE 3 % (0-10); EOSINOPHIL 3 % (0-5); LYMPHOCYTE 34 % (20-50); MONOCYTE 8 % (2-10); NEUTROPHILS 52 % (40-80); TOTAL CELLS COUNTED 100
[2017-07-17 07:11] LABS: ANISOCYTOSIS 2+; MEAN CELL VOLUME 67.2 fl (81-100)
[2017-07-17] MEDS: Albuterol Nebulizer 2.5mg/3mL HHN SCH ×4 (07:51→19:41)
[2017-07-17] MEDS: INSULIN ASPART, RECOMBINANT 100 UNITS/ML SUBQ SCH ×4 (08:13→21:28)
--- NOTE | 2017-07-17 08:21 | Diagnostic Imaging Report ---
Exam: Portable chest x-ray. HISTORY: Pain pneumonia. Findings: Portable examination of the chest at 0750 hours reviewed compared to prior examination of 07/14/2017 The study demonstrates density in the right lower thorax suggesting pneumonia with superimposed effusion. The left lung parenchyma is well aerated. Bony thorax intact. Mediastinal structures midline the aortic arch calcified. CT examination recommended. IMPRESSION: Right lower lobe pneumonia and effusion. CT examination recommended.
--- NOTE | 2017-07-17 20:47 | Discharge Summary ---
DATE OF DISCHARGE: 07/17/2017 CHIEF COMPLAINT: Congestion, abnormal chest x-ray. FINAL DIAGNOSES: Pneumonia, leukocytosis, possible sepsis, hyponatremia, hypertension, hypercholesterolemia, obesity, diabetes, history of deep venous thrombosis and history of psychiatric disorder. HISTORY OF PRESENT ILLNESS: This is a 57-year-old female with history of hypertension, hypercholesterolemia, obesity, diabetes, seizure, history of DVT, admitted from nursing facility secondary to congestion and abnormal chest x-ray. The patient was started on IV antibiotic ____. The patient was admitted for further management. PHYSICAL EXAMINATION: VITAL SIGNS: Blood pressure 140/80, respiration 18, pulse 64, temperature 97.9. GENERAL: Elderly female, obese. NECK: Supple. No mass. LUNGS: Equal breath sounds, few rhonchi. HEART: Regular rate and rhythm with systolic ejection murmur. ABDOMEN: Soft, globular. EXTREMITIES: Positive excoriations. HOSPITAL COURSE: The patient was admitted to Medical Floor. Chest x-ray showed possible infiltrate. The patient to be on Seroquel. Outpatient CT and followup. The patient is currently on IV antibiotics, Levaquin. The patient also seen by Psychiatry, Dr. Zeus Mcdonald. CONDITION ON DISCHARGE: Fair. DISCHARGE INSTRUCTIONS: The patient to continue current regimen. The patient to continue oxygen and bronchodilator treatment and IV hydration. The patient to be referred back to nearest ER if her condition worsens. JOB# [id number]
[2017-07-17] MEDS: Benztropine 1 MG TAB PO SCH (21:28)
[2017-07-17] MEDS: Insulin Detemir 100 units/mL 10mL Vial SUBQ SCH (21:29)
[2017-07-18] MEDS: Albuterol Nebulizer 2.5mg/3mL HHN SCH ×3 (07:16→15:54)
[2017-07-18] MEDS: INSULIN ASPART, RECOMBINANT 100 UNITS/ML SUBQ SCH ×2 (07:42→11:54)
--- NOTE | 2017-07-18 11:29 | Internal Medicine Prog Note ---
Internal Medicine Subjective - Subjective Service Date: 07/18/17 (dc was held , [place] is unable to take patient back, patient has been refusing breathing treatments and oxygen) Patient is:: awake, verbal, interactive, in bed, agitated Patient Complaints of:: congestion Per staff patient has:: no adverse event, no episodes of fall, noncompliant, tolerating meds Internal Medicine Objective - Results Result Diagrams: 07/17/17 05:45 07/17/17 05:45 Recent Labs: Laboratory Last Values WBC 8.4 Th/cmm (4.8-10.8) 07/17/17 05:45 RBC 5.74 Mil/cmm (3.80-5.10) H 07/17/17 05:45 Hgb 12.2 gm/dL (12-16) 07/17/17 05:45 Hct 38.6 % (41.0-60) L 07/17/17 05:45 MCV 67.2 fl (81-100) L 07/17/17 05:45 MCH 21.2 pg (27.0-31.0) L 07/17/17 05:45 MCHC Differential 31.5 pg (28.0-36.0) 07/17/17 05:45 RDW 26.0 % (11.5-20.0) H 07/17/17 05:45 Plt Count 596 Th/cmm (150-400) H 07/17/17 05:45 MPV 8.1 fl 07/17/17 05:45 Neutrophils % 72.4 % (40.0-80.0) 07/15/17 05:45 Band Neutrophils % 3 % (0-10) 07/17/17 05:45 Lymphocytes % 14.6 % (20.0-50.0) L 07/15/17 05:45 Monocytes % 7.9 % (2.0-10.0) 07/15/17 05:45 Eosinophils % 0.6 % (0.0-5.0) 07/15/17 05:45 Basophils % 4.5 % (0.0-2.0) H 07/15/17 05:45 Neutrophils (Manual) 52 % (40-80) 07/17/17 05:45 Lymphocytes 34 % (20-50) 07/17/17 05:45 Monocytes 8 % (2-10) 07/17/17 05:45 Eosinophils 3 % (0-5) 07/17/17 05:45 Anisocytosis 2+ 07/17/17 05:45 Microcytosis 2+ 07/17/17 05:45 RBC Morph Micro Appear ABNORMAL (NORMAL) 07/17/17 05:45 Sodium 132 mEq/L (136-145) L 07/17/17 05:45 Potassium 4.1 mEq/L (3.5-5.1) 07/17/17 05:45 Chloride 99 mEq/L (98-107) 07/17/17 05:45 Carbon Dioxide 25.9 mEq/L (21.0-31.0) 07/17/17 05:45 Anion Gap 11.2 (7.0-16.0) 07/17/17 05:45 BUN 8 mg/dL (7-25) 07/17/17 05:45 Creatinine 0.4 mg/dL (0.6-1.2) L 07/17/17 05:45 Est GFR ( Amer) > 60.0 ml/min (>90) 07/17/17 05:45 Est GFR (Non-Af Amer) > 60.0 ml/min 07/17/17 05:45 BUN/Creatinine Ratio 20.0 07/17/17 05:45 Glucose 182 mg/dL (70-105) H 07/17/17 05:45 POC Glucose 135 MG/DL (70 - 105) H 07/18/17 06:28 Hemoglobin A1c % 10.1 % (4.0-6.0) H 07/14/17 14:17 Whole Bld Lactic Acid 1.83 mmol/L (0.60-1.99) 07/14/17 14:17 Calcium 10.2 mg/dL (8.6-10.3) 07/17/17 05:45 Magnesium 1.7 mg/dL (1.9-2.7) L 07/14/17 14:17 Total Bilirubin 0.3 mg/dL (0.3-1.0) 07/14/17 14:17 AST 18 U/L (13-39) 07/14/17 14:17 ALT 18 U/L (7-52) 07/14/17 14:17 Alkaline Phosphatase 106 U/L (34-104) H 07/14/17 14:17 Ammonia 42 umol/L (16-53) 07/15/17 05:45 Creatine Kinase 19 U/L (30-223) L 07/14/17 14:17 B-Natriuretic Peptide 185.0 pg/mL (5.0-100.0) H 07/17/17 05:45 Total Protein 6.9 gm/dL (6.0-8.3) 07/14/17 14:17 Albumin 3.1 gm/dL (3.7-5.3) L 07/14/17 14:17 Globulin 3.8 gm/dL 07/14/17 14:17 Albumin/Globulin Ratio 0.8 (1.0-1.8) L 07/14/17 14:17 Urine Source CLEAN C 07/14/17 17:35 Urine Color YELLOW 07/14/17 17:35 Urine Clarity CLEAR (CLEAR) 07/14/17 17:35 Urine pH 6.0 (4.6 - 8.0) 07/14/17 17:35 Ur Specific [place] 1.015 (1.005-1.030) 07/14/17 17:35 Urine Protein TRACE mg/dL (NEGATIVE) 07/14/17 17:35 Urine Glucose (UA) NEGATIVE mg/dL (NEGATIVE) 07/14/17 17:35 Urine Ketones NEGATIVE mg/dL (NEGATIVE) 07/14/17 17:35 Urine Blood NEGATIVE (NEGATIVE) 07/14/17 17:35 Urine Nitrate NEGATIVE (NEGATIVE) 07/14/17 17:35 Urine Bilirubin NEGATIVE (NEGATIVE) 07/14/17 17:35 Urine Urobilinogen 0.2 E.U./dL (0.2 - 1.0) 07/14/17 17:35 Ur Leukocyte Esterase NEGATIVE (NEGATIVE) 07/14/17 17:35 Urine RBC NONE SEEN /hpf (0-5) 07/14/17 17:35 Urine WBC NONE SEEN /hpf (0-5) 07/14/17 17:35 Ur Epithelial Cells NONE SEEN /lpf (FEW) 07/14/17 17:35 Urine Bacteria NONE SEEN /hpf (NONE SEEN) 07/14/17 17:35 - Physical Exam Vitals and I&O: Vital Signs Temp 98.0 F 07/18/17 07:56 Pulse 97 04/24/18 08:20 Resp 18 07/18/17 08:00 BP 132/71 07/18/17 08:20 Pulse Ox 90 07/18/17 07:56 Intake & Output 07/17/17 07/18/17 07/18/17 18:59 06:59 18:59 Intake Total 450 1000 Balance 450 1000 Weight (lbs) 165 lb 165 lb Intake: Oral 450 1000 Other: # Voids 2 2 # Bowel Movements 1 0 Weight Source Bedscale Bedscale Active Medications: Current Medications Acetaminophen (Tylenol) 650 mg PO Q4H PRN PRN Reason: Pain Or Fever above 101 Stop: 09/12/17 15:30 Last Admin: 07/18/17 00:31 Dose: 650 mg Al Hydrox/Mg Hydrox/Simethicone (Maalox) 30 ml PO Q6H PRN PRN Reason: Dyspepsia Stop: 09/12/17 15:30 Albuterol Sulfate (Albuterol 2.5mg/3ml Neb Ud) 2.5 mg HHN QIDRT [facility] Stop: 09/12/17 18:59 Last Admin: 07/18/17 07:16 Dose: Not Given Alprazolam (Xanax) 0.5 mg PO Q8H PRN; Protocol PRN Reason: Agitation Stop: 09/13/17 11:48 Amitriptyline HCl (Elavil) 50 mg PO HS [facility] Stop: 09/12/17 21:07 Last Admin: 07/17/17 21:28 Dose: 50 mg Atenolol (Tenormin) 50 mg PO DAILY [facility] Stop: 09/13/17 08:59 Last Admin: 07/18/17 08:20 Dose: 50 mg Benztropine Mesylate (Cogentin) 1 mg PO HS [facility] Stop: 09/12/17 20:59 Last Admin: 07/17/17 21:28 Dose: 1 mg Docusate Sodium (Colace) 250 mg PO DAILY [facility] Stop: 09/13/17 08:59 Last Admin: 07/18/17 08:21 Dose: Not Given Gemfibrozil (Lopid) 600 mg PO BID [facility] Stop: 09/12/17 16:59 Last Admin: 07/18/17 08:21 Dose: 600 mg Glipizide (Glucotrol) 5 mg PO QDAC [facility] Stop: 09/13/17 07:29 Last Admin: 07/18/17 07:00 Dose: 5 mg Haloperidol (Haldol) 2 mg PO Q6HR [facility] PRN Reason: Protocol Stop: 09/12/17 21:14 Last Admin: 07/18/17 07:00 Dose: 2 mg Insulin Aspart (Novolog) 0 units SUBQ ACHS [facility] PRN Reason: Protocol Stop: 09/12/17 16:29 Last Admin: 07/18/17 07:42 Dose: Not Given Insulin Detemir (Levemir Insulin) 20 units SUBQ HS [facility] Stop: 09/12/17 20:59 Last Admin: 07/17/17 21:29 Dose: Not Given Levofloxacin (Levaquin) 500 mg PO DAILY [facility] Stop: 09/15/17 13:59 Last Admin: 07/18/17 08:21 Dose: 500 mg Lorazepam (Ativan) 0.5 mg PO BID PRN; Protocol PRN Reason: AGITATION Stop: 09/12/17 21:07 Metformin HCl (Glucophage) 850 mg PO TID [facility] Stop: 09/12/17 20:59 Last Admin: 07/18/17 08:21 Dose: 850 mg Ondansetron HCl (Zofran) 4 mg IV Q8H PRN PRN Reason: Nausea / Vomiting Stop: 09/12/17 15:30 Risperidone (Risperdal) 2 mg PO BID [facility] Stop: 09/12/17 16:59 Last Admin: 07/18/17 08:21 Dose: 2 mg Rivaroxaban (Xarelto) 10 mg PO DAILY [facility] Stop: 09/13/17 08:59 Last Admin: 07/18/17 08:21 Dose: 10 mg Zolpidem Tartrate (Ambien) 10 mg PO HS PRN PRN Reason: Insomnia Stop: 09/12/17 15:30 General: demented HEENT: NC/AT, PERRLA, poor dentition Neck: Supple, No JVD, deformity Lungs: CTAB Cardiovascular: RRR, Normal S1, Normal S2 Abdomen: soft, globular, non-distended, positive bowel sound Extremities: excoriation, ecchymosis Neurological: no change, bedbound Internal Medicine Assmt/Plan - Assessment Assessment: noncompliant right lower lobe pna leukocytosis possible sepsis hyponatremia hypertension hypercholesterolemia obesity diabetes history of deep venous thrombosis. - Plan Plan: dc planning in progress
== END 2017-07-18 15:59 | DRG 720 ==
LOC: ER 13:45 → MSI 15:55
PROVIDERS: ADMIT Internal Medicine; ATTEND Internal Medicine
DX: A41.9 Sepsis, unspecified organism (principal); J18.1 Lobar pneumonia, unspecified organism; E44.0 Moderate protein-calorie malnutrition; E87.1 Hypo-osmolality and hyponatremia; F20.0 Paranoid schizophrenia; E11.9 Type 2 diabetes mellitus without complications; D47.3 Essential (hemorrhagic) thrombocythemia; E66.9 Obesity, unspecified; F32.9 Major depressive disorder, single episode, unspecified; E78.00 Pure hypercholesterolemia, unspecified; E78.5 Hyperlipidemia, unspecified; I10 Essential (primary) hypertension; Z86.718 Personal history of other venous thrombosis and embolism; F29 Unspecified psychosis not due to a substance or known physiological condition; F17.200 Nicotine dependence, unspecified, uncomplicated; Z68.23 Body mass index [BMI] 23.0-23.9, adult; Z88.8 Allergy status to other drugs, medicaments and biological substances
CPT/HCPCS: 36415-UA; 71045-TC; 80048-TC; 80053-TC; 81001-TC; 82140-TC; 82550-TC; 82948-90; 83036-90; 83605; 83735-TC; 83880-TC; 85007-TC; 85025-TC; 85027-TC; 93005; 94760; J0692; J1815; J7030; J7040; J7613; Z7610